=== PATIENT | male | born 1950 | race American Indian/Alaskan Native ===

== ENCOUNTER 2019-09-16 16:35 | Emergency (ER) | payer MEDICARE, MEDICAID ==
[2019-09-16 16:55] VITALS: BP 94/50; PULSE 54
[2019-09-16] MEDS ORDERED: Sodium Chloride 0.9% 10 ML Syringe FLUSH PRN (17:08)
[2019-09-16] MEDS ORDERED: Sodium Chloride 0.9% 500 ML IV SCH (17:15)
[2019-09-16 17:50] LABS: ANION GAP 18.2 mEq/L (7-13)
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
== END 2019-09-16 18:02 | disposition home or self-care (01) ==
LOC: DL.ED 16:35
DX: I12.9 Hypertensive chronic kidney disease with stage 1 through stage 4 chronic kidney disease, or unspecified chronic kidney disease (principal); E11.22 Type 2 diabetes mellitus with diabetic chronic kidney disease; N18.3 Chronic kidney disease, stage 3 (moderate); D63.1 Anemia in chronic kidney disease; I95.89 Other hypotension; E11.621 Type 2 diabetes mellitus with foot ulcer; L97.429 Non-pressure chronic ulcer of left heel and midfoot with unspecified severity; E78.00 Pure hypercholesterolemia, unspecified; R00.1 Bradycardia, unspecified; Z79.4 Long term (current) use of insulin; Z79.899 Other long term (current) drug therapy
CPT/HCPCS: 36415; 80053; 85025; 85610; 96360; 99284; J7040